=== PATIENT | male | born 1950 | race Caucasian/White ===

== ENCOUNTER 2024-08-16 11:23 | Emergency (ER) | payer OTHER, BC ==
[~2024-08-16] VITALS: Ht 177.8 cm; Wt 67.6 kg
[2024-08-16] MEDS ORDERED: ZESTRIL20 MG PO (11:57)
[2024-08-16] MEDS ORDERED: SIMVASTATIN40 MG PO (11:57)
[2024-08-16] MEDS ORDERED: CIALIS5 MG PO (11:58)
[2024-08-16] MEDS ORDERED: OMEPRAZOLE MAGN20 MG PO (11:59)
[2024-08-16] MEDS ORDERED: LATANOPROST2.5 ML OP (11:59)
== END 2024-08-16 13:39 | disposition home or self-care (01) ==
LOC: ER 11:25
DX: H11.31 Conjunctival hemorrhage, right eye (principal); I10 Essential (primary) hypertension; H40.001 Preglaucoma, unspecified, right eye